=== PATIENT | male | born 1970 | race Caucasian/White ===

== ENCOUNTER 2017-02-20 13:45 | Emergency (ER) | payer OTHER ==
--- NOTE | 2017-02-20 14:01 | CPEKG ---
Heart Rate: 115 RR Interval: 522 P-R Interval: 152 QRSD Interval: 90 QT Interval: 320 QTC Interval: 443 P [place]: 69 QRS [place]: 6 T Wave [place]: 37 EKG Severity - OTHERWISE NORMAL ECG - EKG Impression: SINUS TACHYCARDIA Electronically Signed By: Gregor Sagastume 20-Feb-2017 14:32:34
[2017-02-20 14:02] VITALS: O2SAT 95
[2017-02-20] MEDS ORDERED: NS 1,000 ML IV ONE (14:04)
--- NOTE | 2017-02-20 14:07 | EDPHY ---
H & P Stated Complaint: chest tightness, dizzy, left arm numb Source: Patient Exam Limitations: No limitations - Personal History Current Tetanus/Diphtheria Vaccine: Yes Tetanus Vaccine Date: less than 10 years - Medical/Surgical History Hx Asthma: No Hx Chronic Respiratory Disease: No Hx Diabetes: No Hx Cardiac Disease: No Hx Renal Disease: No Hx Cirrhosis: No Hx Alcoholism: No Hx HIV/AIDS: No Hx Splenectomy or Spleen Trauma: No Other PMH: APPendectomy ,GERD, basal cell carcinoma removed from face - Social History Smoking Status: Former smoker Time Seen by Provider: 02/20/17 13:52 HPI/ROS: CHIEF COMPLAINT: Chest pressure, left arm paresthesia HISTORY OF PRESENT ILLNESS: The patient presents the ED after he developed mild chest pressure and a slight left arm paresthesia and approximately 1 o' clock today. The patient did have an episode of presyncope with the symptoms. The patient denies prior history of the symptoms. He has no risk factors for coronary artery disease in specifically denies family history, smoking status, hypertension, diabetes or hyperlipidemia. The patient states that his symptoms have significantly improved since arriving in the ED. The patient denies pleuritic chest pain, asymmetric calf pain or swelling. Additionally, the patient has had no history of fever, cough or congestion. REVIEW OF SYSTEMS: A comprehensive 10 point review of systems is otherwise negative aside from elements mentioned in the history of present illness. (Gregor Sagastume) - Physical Exam Exam: General Appearance: Alert, no distress Eyes: Pupils equal and round no pallor or injection ENT, Mouth: Mucous membranes moist Respiratory: There are no retractions, lungs are clear to auscultation Cardiovascular: Tachycardia Gastrointestinal: Abdomen is soft and nontender, no masses, bowel sounds normal Neurological: A&O, normal motor function, normal sensory exam, normal cranial nerves Skin: Warm and dry, no rashes Musculoskeletal: Neck is supple nontender Extremities: symmetrical, full range of motion Psychiatric: Patient is oriented X 3, there is no agitation (Gregor Sagastume) Constitutional: Initial Vital Signs Temperature (C) 36.6 C 02/20/17 13:59 Heart Rate 115 H 02/20/17 13:59 Respiratory Rate 16 02/20/17 13:59 Blood Pressure 162/103 H 02/20/17 13:59 O2 Sat (%) 95 02/20/17 13:59 O2 Delivery Mode Room Air Allergies/Adverse Reactions: No Known Allergies Allergy (Unverified 04/01/13 11:22) Home Medications: Medication Instructions Recorded Hydrocodone/APAP 5/325 [[place] 1 - 2 tab PO Q4-6PRN PRN #15 tab 04/01/13 5/325 (*)] Sulfamethoxazole/Trimethoprim 1 tab PO BID #20 tablet 04/01/13 [Bactrim Ds Tablet] Tamsulosin HCl [Flomax] 0.4 mg PO DAILY #10 cap 04/01/13 Medical Decision Making - Diagnostics EKG Interpretation: EKG: Complete interpretation has been separately recorded in the [facility] archive. Summary impression: Sinus tachycardia, rate 115, no ST segment elevation or depression. (Gregor Sagastume) Imaging Results: Imaging Impressions Chest X-Ray 02/20/17 14:05 Impression: Nothing acute identified. Chest x-ray PA lateral: Images reviewed by myself, negative for infiltrate, cardiomegaly or mediastinal widening. Impression: Normal chest x-ray (Gregor Sagastume) ED Course/Re-evaluation: The patient presents to the ED after an episode of mild chest pressure and left arm paresthesias. It occurred while at rest. The patient has no prior history of the symptoms. He has no risk factors for coronary artery disease. His initial EKG demonstrated a sinus tachycardia without ischemic changes. His 1st troponin was normal. The patient's D-dimer is negative which I feel adequately excludes pulmonary embolism in this low risk by Wells criteria patient. The patient's index episode of chest pain occurred at 1:00 p.m.. We will obtain a 4 hour troponin. If this is normal the patient will be discharged home with instructions to follow up with our on-call drafter [facility] for consideration of a treadmill stress test. The patient will be informed that we have not fully exclude the possibility of occult coronary artery disease and that he needs to return to the ED immediately for any recurrent chest pain, shortness of breath or difficulty breathing. The patient will be turned over to Dr. Baez at shift change pending the 2nd troponin. (Gregor Sagastume) 15 30: The patient is signed out to me at change of shift by Dr. Sagastume. I reviewed the case with Dr. Sagastume. Patient was stable at time of transfer. She denies any chest pain. Per Dr. Sagastume, the patient is to have a troponin drawn at 1700. If this is negative, Dr. Shelby's plan to have the patient discharged home. I rechecked the patient on numerous occasions. He had no chest pain or other complaints. He was noted to be mildly tachycardic in the low 100s. 1700: Repeat EKG showed sinus tachycardia 102. Normal axis. Normal intervals. No ST or T-wave abnormalities. Repeat troponin was negative at 0.012 I discussed the results with the patient. On recheck he had no complaints. He is given warnings prior to leaving. He will return with worsening symptoms. ( Jacklyn Baez) Differential Diagnosis: Differential diagnosis considered includes acute coronary syndrome, pulmonary embolism, aortic dissection, esophageal spasm (Gregor Sagastume) - Data Points Laboratory Results: Laboratory Results 02/20/17 14:07 02/20/17 14:07 02/20/17 02/20/17 02/20/17 17:00 14:07 14:07 WBC RBC Hgb Hct MCV MCH MCHC RDW Plt Count MPV Neut % (Auto) Lymph % (Auto) [place] % (Auto) Eos % (Auto) Baso % (Auto) Nucleat RBC Rel Count Absolute Neuts (auto) Absolute Lymphs (auto) Absolute Monos (auto) Absolute Eos (auto) Absolute Basos (auto) Absolute Nucleated RBC Immature Gran % Immature Gran # D-Dimer < 0.27 ug/mLFEU ug/mLFEU (0.00-0.50) Sodium 139 mEq/L mEq/L (134-144) Potassium 4.0 mEq/L mEq/L (3.5-5.2) Chloride 105 mEq/L mEq/L (97-110) Carbon Dioxide 21 mEq/l L mEq/l (22-31) Anion Gap 13 mEq/L mEq/L (8-16) BUN 16 mg/dL mg/dL (7-23) Creatinine 1.0 mg/dL mg/dL (0.7-1.3) Estimated GFR > 60 Glucose 100 mg/dL mg/dL (70-100) Calcium 9.5 mg/dL mg/dL (8.5-10.4) Troponin I < 0.012 ng/mL ng/mL < 0.012 ng/mL ng/mL (0.000-0.034) (0.000-0.034) 02/20/17 14:07 WBC 6.68 10^3/uL 10^3/uL (3.80-9.50) RBC 5.21 10^6/uL 10^6/uL (4.40-6.38) Hgb 17.0 g/dL g/dL (13.7-17.5) Hct 46.2 % % (40.0-51.0) MCV 88.7 fL fL (81.5-99.8) MCH 32.6 pg pg (27.9-34.1) MCHC 36.8 g/dL H g/dL (32.4-36.7) RDW 11.9 % % (11.5-15.2) Plt Count 197 10^3/uL 10^3/uL (150-400) MPV 10.0 fL fL (8.7-11.7) Neut % (Auto) 53.5 % % (39.3-74.2) Lymph % (Auto) 31.9 % % (15.0-45.0) [place] % (Auto) 10.0 % % (4.5-13.0) Eos % (Auto) 3.6 % % (0.6-7.6) Baso % (Auto) 0.7 % % (0.3-1.7) Nucleat RBC Rel Count 0.0 % % (0.0-0.2) Absolute Neuts (auto) 3.57 10^3/uL 10^3/uL (1.70-6.50) Absolute Lymphs (auto) 2.13 10^3/uL 10^3/uL (1.00-3.00) Absolute Monos (auto) 0.67 10^3/uL 10^3/uL (0.30-0.80) Absolute Eos (auto) 0.24 10^3/uL 10^3/uL (0.03-0.40) Absolute Basos (auto) 0.05 10^3/uL 10^3/uL (0.02-0.10) Absolute Nucleated RBC 0.00 10^3/uL 10^3/uL (0-0.01) Immature Gran % 0.3 % % (0.0-1.1) Immature Gran # 0.02 10^3/uL 10^3/uL (0.00-0.10) D-Dimer Sodium Potassium Chloride Carbon Dioxide Anion Gap BUN Creatinine Estimated GFR Glucose Calcium Troponin I Medications Given: Discontinued Medications Sodium Chloride (Ns) 1,000 mls @ 0 mls/hr IV EDNOW ONE; Wide Open PRN Reason: Protocol Stop: 02/20/17 14:05 Last Admin: 02/20/17 14:13 Dose: 1,000 mls Departure - Departure Clinical Impression: Chest pain Condition: Good Instructions: Chest Pain (ED) Additional Instructions: 1. Based upon the testing done in the Emergency Department today we see no evidence of a heart attack. 2. We are unable to fully exclude coronary artery disease based upon the testing available in the Emergency Department. 3. For this reason, we would like you to be seen by cardiology for consideration of additional testing within the next 3 days. 4. Please contact the [facility] you have been referred to schedule this appointment as soon as possible. Their offices are typically open from 8:30am- 5pm M-F. 5. Please return to the Emergency Department immediately for any recurrent chest pain, difficulty breathing or other concerns. Referrals: Dia Prasad MD [Primary Care Provider] - As per Instructions Reggie Carrillo MD [Medical Doctor] - As per Instructions
[2017-02-20 14:19] LABS: % IMMATURE GRANULYOCYTES 0.3 % (0.0-1.1); ABSOLUTE IMMATURE GRANULOCYTES 0.02 10^3/uL (0.00-0.10); ADD DIFF? NO; ADD MORPH? NO; ADD SCAN? NO; ATYPICAL LYMPHOCYTE FLAG 10 (0-99); FRAGMENT RBC FLAG 0 (0-99); HEMATOCRIT 46.2 % (40.0-51.0); LEFT SHIFT FLG 0 (0-99); LIPEMIA HEMOLYSIS FLAG 90 (0-99); MEAN CELL HEMOGLOBIN 32.6 pg (27.9-34.1); MEAN CELL HEMOGLOBIN CONCENTR. 36.8 g/dL (32.4-36.7); MEAN CELL VOLUME 88.7 fL (81.5-99.8); PLATELET CLUMPS FLAG 20 (0-99); PLATELET COUNT 197 10^3/uL (150-400); RED BLOOD CELL COUNT 5.21 10^6/uL (4.40-6.38); RED CELL DISTRIBUTION WIDTH 11.9 % (11.5-15.2)
[2017-02-20 14:33] LABS: ANION GAP 13 mEq/L (8-16); CALCIUM 9.5 mg/dL (8.5-10.4); CARBON DIOXIDE 21 mEq/l (22-31); CHLORIDE 105 mEq/L (97-110); GLOMERULAR FILTRATION RATE > 60; GLUCOSE 100 mg/dL (70-100); SODIUM 139 mEq/L (134-144)
[2017-02-20 14:45] LABS: TROPONIN I < 0.012 ng/mL (0.000-0.034)
--- NOTE | 2017-02-20 17:01 | CPEKG ---
Heart Rate: 102 RR Interval: 588 P-R Interval: 152 QRSD Interval: 86 QT Interval: 344 QTC Interval: 449 P [place]: 73 QRS [place]: 31 T Wave [place]: 50 EKG Severity - OTHERWISE NORMAL ECG - EKG Impression: SINUS TACHYCARDIA Electronically Signed By: David Brian 21-Feb-2017 13:56:53
[2017-02-20 18:13] VITALS: BP 144/87; PULSE 87; RESP 18; TEMP 98.6
== END 2017-02-20 18:20 | disposition home or self-care (01) ==
DX: R07.9 Chest pain, unspecified (principal); E86.9 Volume depletion, unspecified; Z85.828 Personal history of other malignant neoplasm of skin; Z87.891 Personal history of nicotine dependence